=== PATIENT | female | born 1970 | race Caucasian/White ===

== ENCOUNTER 2018-05-27 09:43 | Emergency (ER) | payer BC, OTHER ==
[~2018-05-27] VITALS: Ht 175.3 cm; Wt 81.3 kg
[~2018-05-27 09:43] MED LIST: HYDR1TAB PO; NAPR-232 PO; NO HOME MEDS
[2018-05-27 09:46] VITALS: BP 145/65
[2018-05-27] MEDS ORDERED: ketorolac trometh inj. 60 MG/2 ML VIAL IM ONE (11:50)
[2018-05-27] MEDS ORDERED: CYCL-1 PO (11:54)
[2018-05-27] MEDS ORDERED: HYDR-565 PO (11:54)
== END 2018-05-27 12:17 | disposition home or self-care (01) ==
LOC: ER 09:44
DX: G89.29 Other chronic pain (principal); M54.5 Low back pain; Z79.899 Other long term (current) drug therapy; X50.1XXA Overexertion from prolonged static or awkward postures, initial encounter; Y93.89 Activity, other specified; Y92.89 Other specified places as the place of occurrence of the external cause; Y99.8 Other external cause status
CPT/HCPCS: 96372; 99283; J1885

== ENCOUNTER 2018-05-29 12:51 | Emergency (ER) | payer BC ==
[~2018-05-29] VITALS: Ht 167.6 cm; Wt 85.3 kg
[~2018-05-29 12:51] MED LIST changes: +CYCL-1 PO; +HYDR-565 PO
[2018-05-29 13:18] VITALS: BP 133/67
[2018-05-29] MEDS ORDERED: HYDROmorphone 2mg tablet PO PRN (14:40)
== END 2018-05-29 15:36 | disposition home or self-care (01) ==
LOC: ER 12:52
DX: M54.41 Lumbago with sciatica, right side (principal); G89.29 Other chronic pain
CPT/HCPCS: 99282